=== PATIENT | male | born 1975 | race Caucasian/White ===

== ENCOUNTER 2024-11-17 13:20 | Outpatient (OUT) | payer OTHER, SELFPAY ==
--- OUTSIDE RECORDS SUMMARY | 2016-05-27 20:00 | XMS_ITS | Continuity of Care Document ---
Author Organization [facility] rtment Address [address] [place] [address] Phone Care Team Providers Care Automotive Sales Associate Name Role Phone Sinan Robin DO Unavailable Unavailable Procedures Procedure Date RPR RPR-External RPR RPR-External HAV OFFICE/OUTPATIENT VISIT EST QFT Negative TB TEST, CELL IMMUN MEASURE ROUTINE VENIPUNCTURE Advance Directives Directive Yes / No Effective Date File Name No Information Encounters Encounter Description Practice Location Reason(s) For Visit Diagnoses Date Provider Providers Copied on Encounter [facility], [address], [place], [id number] , tel:[phone] [facility] Lab - [facility] Encounter for screening for infections with a predominantly sexual mode of transmission Sharda Gil. [address] [place], [address]. tel:[phone] [facility], [address], [place], [id number] , tel:[phone] [facility] Lab - [facility] Screening exam for sexually transmitted disease 5 Sharda Gil. [address] [place], [address]. tel:[phone] OFFICE/OUTPA TIENT VISIT EST [facility], [address], [place], [id number] , tel:[phone] [facility] Immunization Need for hepatitis A immunization 4 Ji Maier. [address] [place], [id number], [place]. tel:[phone] [facility], [address] [place], [id number] , tel: [phone] [facility] TB negative tb screening (chief complaint) QFT (chief complaint) No Information 2200 9 No Information [facility], [address] [place], [id number] , tel: [phone] [facility] TB QFT (chief complaint) SCREENING-PULM ONARY TBSCREENING-PU LMONARY TB 9 No Information Family History Family Member Type Diagnosis Age At Onset No Information Immunizations Vaccine Date Status Comments Hep A (adult) administered Source: New Im munization Record Payers Payer name Insurance type Covered constitution party ID Maicol crawley(s) [facility] Social History Type Description Quantity Date Captured Comments Sex Male Smoking Status No Information Chief Complaint And Reason For Visit No Information Reason For Referral Reason For Referral No Information Plan Of Treatment Date Type Action Status Future Order: Lab Order RPR W/re flex FTA (RPRREFLEX), Appointment on: Ordered Future Order: Lab Order RPR W/re flex FTA (RPRREFLEX), Appointment on: Ordered History Of Present Illness Encounter Date Complaint History Of Prese nt Illness No Information Functional Status Date Functional Assessmen t No Information Instructions Date Instruction Additional Infor mation No Information Assessments Type Assessment Date assessment Encounter for screen ing for infections with a predominantly sexual mode of transmission Patient Care Teams Name Effective Dates (start - stop) Status Members No Information
--- OUTSIDE RECORDS SUMMARY | 2024-11-17 13:28 | XMS_ITS | Encounter Summary ---
Author Organization [facility] Address [address] [place] [address] Care Team Providers Care Plant Utility Person Name Role Phone Robert Santana MD Primary Care Provider [phone] Encounter Details Date Type Department Care Team (Latest Contact Info) Description 11/08/2024 Travel Social History Tobacco Use Types Packs/Day Years Used Date Smoking Tobacco: Some Days Cigars Smokeless Tobacco: Never Alcohol Use Standard Drinks/Week Comments Yes 0 (1 standard drink = 0.6 oz pur e alcohol) B1300 Health Literacy Answer Date Recor ded How often do you need to hav e someone help you when you read instructions, pamphlets, or other written material from your doctor or pharmacy? Never 05/10/2024 Social Connection and Isolation Panel [NHANES] A nswer Date Recorded In a typical week, how many times do you talk on the phone with family, friends, or neighbors? Once a week 05/10/19 How often do you get togethe r with friends or relatives? Once a week 05/10/2024 How often do you attend chur or restorationist services? Never 05/10/2024 Do you belong to any clubs o r organizations such as samaritan groups, unions, fraternal or athletic groups, or school groups? No 05/10/2024 How often do you attend meet ings of the clubs or organizations you belong to? Never 05/10/2024 Are you , , di vorced, , never , or living with a partner? Living with partner 05/10/2024 AUDIT-C Answer Date Recorded Q1: How often do you have a drink containing alc ohol? 2-3 times a week 05/10/2024 Q2: How many drinks containi ng alcohol do you have on a typical day when you are drinking? 1 or 2 05/10/2024 Q3: How often do you have si x or more drinks on one occasion? Never 05/10/2024 Overall Financial Resource Strain (CARDIA) Answe r Date Recorded How hard is it for you to pa y for the very basics like food, housing, medical care, and heating? Not hard at all 05/10/2024 PHQ-2 Answer Date Recorded Patient Health Questionnaire-2 Score 0 11/08/2024 [facility] of Occupat ional [facility] - Occupational Stress Questionnaire Answer Date Recorded Do you feel stress - tense, restless, nervous, or anxious, or unable to sleep at night because your mind is troubled all the time - these days? To some extent 05/10/2024 Exercise Vital Sign Answer Date Recorde d On average, how many days pe r week do you engage in moderate to strenuous exercise (like a brisk walk)? 1 day 05/10/2024 On average, how many minutes do you engage in exercise at this level? 30 min 05/10/2024 Hunger Vital Sign Answer Date Recorded Within the past 12 months, y ou worried that your food would run out before you got the money to buy more. Never true 05/10/19 25 Within the past 12 months, t he food you bought just didn't last and you didn't have money to get more. Never true 05/10/2024 PRAPARE - Transportation Answer Date Re corded In the past 12 months, has l ack of transportation kept you from medical appointments or from getting medications? No 04/27 In the past 12 months, has l ack of transportation kept you from meetings, work, or from getting things needed for daily living? No 05/10/2024 Housing Stability Vital Sign Answer Geoff e Recorded In the last 12 months, was t here a time when you were not able to pay the mortgage or rent on time? No 05/10/2024 In the past 12 months, how m any times have you moved where you were living? 0 05/10/2024 At any time in the past 12 m [facility], were you homeless or living in a [place] facility (including now)? No 05/10/2024 Sex and Gender Information Value Date Recorded Sex Assigned at Not on file Legal Sex Male 8:12 PM EDT Gender Identity Not on file Sexual Orientation Not on file documented as of this encounter Functional Status * Over the past 2 weeks, how often have you been bothered by any of the following problems? Question Answer Date of Assessment Author Little interest or pleasure in doing things Not at all 11/08/2024 9:50 AM EDT VIVEK GRIJALVA Feeling down, depressed, or hopeless Not at all 10/25 9:50 AM EDT VIVEK GRIJALVA Patient Health Questionnaire-2 Score 0 10/25 9:50 AM EDT VIVEK GRIJALVA documented as of this encounter Plan of Treatment Upcoming Encounters Date Type Department Care Team (Late st Contact Info) Description 11/22/2024 10:00 AM EDT Office Visit [facility] [address] [place] [address] Cassia Asher MD [address] [place] [address] 12/07/2024 11:00 AM EDT Office Visit [facility] [address] [place] [address] Robert Santana MD [address] [place] [address] documented as of this encounter Visit Diagnoses Not on filedocumented in this encounter Care Teams Plant Utility Person Relationship Specialty Start Date End Date Robert Santaan MD [address] [place] [address] PCP - General Internal Medicine 04/23/23 documented as of this encounter
--- OUTSIDE RECORDS SUMMARY | 2024-11-17 13:28 | XMS_ITS | Clinical Summary ---
Author Organization [facility] Healthcare Address [address] [place] [address] Care Team Providers Care Dialysis Biomed Technician Name Role Phone Robert Santana MD Primary Care Provider [phone] Allergies No known active allergies Medications empagliflozin (Jardiance) 10 MGIndications:T ype 2 diabetes mellitus without complication, without long-term current use of insulin ([facility]) Take 1 tablet (10 mg) by mouth Daily 90 tablet 3 5 05/11/19 26 Active neomycin-polymy samantha-hydrocortis one (Cortisporin) otic solutionIndicat ions:Cellulitis of toe, right,Ingrown toenail 2-3 drops in each nail bed following nail removal procedure daily with dressing changes. 10 mL 2 5 Active Lancets (OneTouch Delica Plus [id number]) miscIndications :Type 2 diabetes mellitus without complication, without long-term current use of insulin ([facility]) 1 each by Other route Daily 100 each 3 5 11/09/19 26 Active glucose blood (OneTouch Ultra Test) test stripIndication s:Type 2 diabetes mellitus without complication, without long-term current use of insulin ([facility]) 1 each by Other route Daily 100 each 3 5 Active amoxicillin-cla vulanate (Augmentin) 875-125 MG tabletIndicatio ns:Acute recurrent sinusitis, unspecified location Take 1 tablet (875 mg) by mouth in the morning and 1 tablet (875 mg) before bedtime. Do all this for 14 days. 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 04/13/2023 Type 2 diabetes mellitus, wi thout long-term current use of insulin 04/13/2023 Herniation of cervical inter vertebral disc with radiculopathy 11/28/2014 Pure hypertriglyceridemia 07/03/2011 Encounters Date Type Department Care Team Description 11/08/2024 10:00 AM EDT Office Visit [facility] [address] [facility] [address] [place] [address] [place] Carrington, AISSATOU Chronic sinusitis, unspecified location (Primary Dx); Epistaxis; Acute intractable headache, unspecified headache type; Type 2 diabetes mellitus without complication, without long-term current use of insulin (HCC); Acute recurrent sinusitis, unspecified location 11/08/2024 Bamboo flowsheet [facility] [address] [facility] [address] [place] [address] [place] Carrington NP 11/08/2024 Travel 09/28/2024 3:00 PM EDT Office Visit [facility] [address] [place] [address] Giovana Pacheco DPM Ingrown toenail (Primary Dx); Pain of toe of left foot; Pain of toe of right foot 09/28/2024 Bamboo flowsheet [facility] [address] [place] [address] Giovana Pacheco DPM 09/28/2024 Travel 09/05/2024 4:15 PM EDT Office Visit [facility] [address] [place] [address] Pacheco, Giovana H, DPM Ingrown toenail (Primary Dx); Cellulitis of toe, right; Paronychia of toenail of right foot 09/05/2024 Bamboo flowsheet [facility] [address] [place] [address] Giovana Pacheco DPM 09/05/2024 Travel 08/18/2024 2:45 PM EDT Office Visit [facility] [address] [place] [address] Giovana Pacheco, NORMA Cellulitis of toe, right (Primary Dx); Ingrown toenail; Paronychia of toenail of right foot 08/18/2024 Bamboo flowsheet [facility] [address] [place] [address] Giovana Pacheco DPM 08/18/2024 Travel from Last 3 Months Immunizations Immunization Administration Dates Next Due Influenza, injectable, quadrivalent 01/30/2021 Family History Relation Name Status Comments Father Alive Mother Alive Social History Tobacco Use Types Packs/Day Years Used Date Smoking Tobacco: Some Days Cigars Smokeless Tobacco: Never Tobacco Cessation:Ready to Q uit: Not Asked; Counseling Given: Yes Alcohol Use Standard Drinks/Week Comments Yes 0 [...] 05/10/2024 How often do you attend chur ch or tenriism services? Never 05/10/2024 Do you belong to any clubs o r organizations such as christianity groups, unions, fraternal or athletic groups, or [...] Recorded Patient Health Questionnaire-2 Score 0 11/08/2024 [facility] Occupat ional Health - Occupational Stress Questionnaire Answer Date Recorded [...] any time in the past 12 m [facility], were you homeless or living in a retirement (including now)? No 05/10/2024 Sex and Gender Information Value Date Recorded Sex Assigned at Not on file Legal Sex Male 8:12 PM EDT Gender Identity Not on file Sexual Orientation Not on file Last Filed Vital Signs Vital Sign Reading Time Taken Comments Blood Pressure 124/78 11/08/2024 9:58 AM EDT Pulse 67 11/08/2024 9:58 AM EDT Temperature - - Respiratory Rate 16 11/08/2024 9:58 AM EDT Oxygen Saturation 98% 11/08/2024 9:58 AM EDT Inhaled Oxygen Concentration - - Weight 82.1 kg (181 lb) 11/08/2024 9:58 AM EDT Height 179.7 cm (5' 10.75 ) 11/08/2024 9:58 AM E DT Body Mass Index 25.42 11/08/2024 9:58 AM EDT Plan of Treatment Upcoming Encounters Date Type Department Care Team (Late st Contact Info) Description 11/22/2024 10:00 AM EDT Office Visit [facility] [address] [facility] [address] [place] [address] Cassia Asher MD [address] [facility] [address] [place] [address] 12/07/2024 11:00 AM EDT Office Visit [facility] [address] [facility] [address] [place] [address] Robert Santana MD [address] [address] [place] [address] Health Maintenance Due Date Last Done Comments CT Colonography 1976 Colonoscopy 1976 FIT 1976 FOBT 1976 Sigmoidoscopy 1976 Diabetes: Hemoglobin A1C 09/05/2024 025, 12/07/2023, 06/15/2023, Additional history exists Diabetes: Urine Protein Screening 09/09/2024 024, 01/16/2021 Influenza Vaccine (#1) 2024 01/30/2021 Diabetes: Retinopathy Screening 04/13/2025 Colorectal Cancer Screening 05/11/2026 FIT-DNA 05/11/2026 05/11/2023 Procedures Procedure Name Priority Date/Time Associated Diagnosis Comments POCT GLYCATED HEMOGLOBIN, TOTAL Routine 06/08/2024 11:52 AM EST Type 2 diabetes mellitus with other specified complication, without long-term current use of insulin (HCC) MICROALBUMIN / CREATININE URINE RATIO Routine 09/10/2023 2:34 PM EDT Type 2 diabetes mellitus without complication, without long-term current use of insulin (HCC) LAB COLOGUARD COLON CANCER SCREEN Routine 05/11/2023 2:30 PM EST Screening for colorectal cancer DIABETIC RETINOPATHY SCREENING - OU - BOTH EYES Routine 04/13/2023 from Last 3 Months or Most Recently Relevant to Health Maintenance Results * POCT Glycated hemoglobin, total (06/08/2024 11:52 AM EST) Hemoglobin A1C 7.3 Blood 06/08/2024 11:5 2 AM EST Robert Santana MD POINT OF CARE TEST ENTER/EDIT ORDERABLES Final Result * Microalbumin / creatinine, urine ratio (09/10/2023 2:34 PM EDT) CREATININE, RANDOM URINE 149 20 - 320 mg/dL [facility] ALBUMIN, URINE 0.2 See Note: mg/dL [facility] Comment: Reference Range: Reference Range Not established ALBUMIN/CREATININE RATIO, RANDOM URINE 1 <30 mg/g creat [facility] Comment: The ADA defines abnormalities in albumin excretion as follows: Albuminuria Category Result (mg/g creatinine) Normal to Mildly increased <30 Moderately increased 30-299 Severely increased > OR = 300 The ADA recommends that at least two of three specimens collected within a 3-6 month period be abnormal before considering a patient to be within a diagnostic category. Urine Urine specimen obtained by clean catch procedure / Unknown 09/10/2023 2:34 PM EDT 09/10/2023 2:34 PM EDT Narrative [facility] - 09/11/2023 12:19 PM EDT FASTING:YES FASTING: YES Resulting Agency Comment Performing Organization Information Site ID: QPT Name: [facility] Address: [address] [place] [address], [address] [place] [id number] Director: Chang Apodaca MD us Robert Santana MD LAB URINE ORDERABLES Final Res ult [facility] * Cologuard?? colon cancer screening (05/11/2023 2:30 PM EST) NONINV COLON CA DNA+OCC BLD SCRN STL-IMP Negative Negative 05/19/2023 8:42 PM EST [employer] (CLIA #:[id number]) Comment: NEGATIVE TEST RESULT. A negative Cologuard result indicates a low likelihood that a colorectal cancer (CRC) or advanced adenoma (adenomatous polyps with more advanced pre-malignant features) is present. The chance that a person with a negative Cologuard test has a colorectal cancer is less than 1 in 1500 (negative predictive value >99.9%) or has an advanced adenoma is less than 5.3% (negative predictive value 94.7%). These data are based on a prospective cross-sectional study of 10,000 individuals at average risk for colorectal cancer who were screened with both Cologuard and colonoscopy. (Monae Chapman al, N Engl J Med 2014;370(14):6320-3631) The normal value (reference range) for this assay is negative. COLOGUARD RE-SCREENING RECOMMENDATION: Periodic colorectal cancer screening is an important part of preventive healthcare for asymptomatic individuals at average risk for colorectal cancer. Following a negative Cologuard result, the [place] [employer] Society and U.S. Multi-Society Task Force screening guidelines recommend a Cologuard re-screening interval of 3 years. References: [place] [employer] Guideline for Colorectal Cancer Screening: https://www.cancer.org/cancer/jorul-ocljyg-tidkvr/sxfxchghi-wwiuovhzs-spofayq/ac s-rec ommendations.html.; Og DK, Damon CR, Minerva CampbellK, Colorectal Cancer Screening: Recommendations for Physicians and Patients from the U.S. Multi-Society Task Force on Colorectal Cancer Screening , Am J Gastroenterology 2017; 112:5479-1031. TEST DESCRIPTION: Composite algorithmic analysis of stool DNA-biomarkers with hemoglobin immunoassay. Quantitative values of individual biomarkers are not reportable and are not associated with individual biomarker result reference ranges. Cologuard is intended for colorectal cancer screening of adults of either sex, 45 years or older, who are at average-risk for colorectal cancer (CRC). Cologuard has been approved for use by the U.S. FDA. The performance of Cologuard was established in a cross sectional study of average-risk adults aged 50-84. Cologuard performance in patients ages 45 to 49 years was estimated by sub-group analysis of near-age groups. Colonoscopies performed for a positive result may find as the most clinically significant lesion: colorectal cancer [4.0%], advanced adenoma (including sessile serrated polyps greater than or equal to 1cm diameter) [20%] or non- advanced adenoma [31%]; or no colorectal neoplasia [45%]. These estimates are derived from a prospective cross-sectional screening study of 10,000 individuals at average risk for colorectal cancer who were screened with both Cologuard and colonoscopy. (Monae Chapman al, N Engl J Med 2014;370(14):7088-2461.) Cologuard may produce a false negative or false positive result (no colorectal cancer or precancerous polyp present at colonoscopy follow up). A negative Cologuard test result does not guarantee the absence of CRC or advanced adenoma (pre-cancer). The current Cologuard screening interval is every 3 years. ([place] [employer] and U.S. Multi-Society Task Force). Cologuard performance data in a 10,000 patient pivotal study using colonoscopy as the reference method can be accessed at the following location: www.Authenticlick.Yoono/results. Additional description of the Cologuard test process, warnings and precautions can be found at www.e-Rewards.com. Stool specimen (specimen) 05/11/2023 2:30 PM EST 05/13/2023 11:08 AM EST Robert Santana MD LAB MOLECULAR DIAGNOSTICS SHARRON GUSMAN Final Result .[facility] (CLIA #:[id number]) [address] [place] [address], [facility] (CLIA #:[id number]) [address] [place] [address] * Diabetic Retinopathy Screening - OU - Both Eyes (04/13/2023) RESULTS ndr Anatomical Region Laterality Modality Head Other 04/13/2023 Robert Santana MD OPHTH PHOTOGRAPHY Final Result from Last 3 Months or Most Recently Relevant to Health Maintenance Insurance [facility] Care Teams Dialysis Biomed Technician Relationship Specialty Start Date End Date Robert Santana MD [address] [facility] [address] [place] [address] PCP - General Internal Medicine 04/23/23
--- OUTSIDE RECORDS SUMMARY | 2024-11-17 13:28 | XMS_ITS | Encounter Summary ---
Author Organization [facility] Address [address] [place] [address] Care Team Providers Care Maintenance Mechanic Telephone Name Role Phone Robert Santana MD Primary Care Provider [phone] Encounter Details Date Type Department Care Team (Late st Contact Info) Description 11/08/2024 Bamboo flowsheet [facility] [address] [facility] [address] [place] [address] [place] Carrington, RUBBER OFF [address] [facility] [address] [place] [address] Social History Tobacco Use Types Packs/Day Years [...] often do you attend chur ch or latter day services? Never 05/10/2024 Do you belong to any clubs o r organizations such as pentecostalism groups, unions, fraternal or athletic groups, or [...] Recorded Patient Health Questionnaire-2 Score 0 11/08/2024 [facility] of Occupat ional [facility] - Occupational Stress Questionnaire Answer Date Recorded [...] time in the past 12 m [facility], were you homeless or living in a snf (including now)? No 05/10/2024 Sex and Gender Information Value Date Recorded Sex Assigned at Not on file Legal Sex Male 8:12 PM EDT Gender Identity Not on file Sexual Orientation Not on file documented as of this encounter Plan of Treatment Upcoming Encounters Date Type Department Care Team (Late st Contact Info) Description 11/22/2024 10:00 AM EDT Office Visit [facility] [address] [place] [address] Cassia Asher MD [address] [place] [address] 12/07/2024 11:00 AM EDT Office Visit [facility] [address] [place] [address] Robert Santana MD [address] [place] [address] documented as of this encounter Visit Diagnoses Not on filedocumented in this encounter Care Teams Maintenance Mechanic Telephone Relationship Specialty Start Date End Date Robert Santana MD [address] [place] [address] PCP - General Internal Medicine 04/23/23 documented as of this encounter
--- OUTSIDE RECORDS SUMMARY | 2024-11-17 13:28 | XMS_ITS | Encounter Summary ---
Author Organization [facility] Address [address] [place] [address] Care Team Providers Care Nail Welter Name Role Phone Robert Santana MD Primary Care Provider [phone] Encounter Details Date Type Department Care Team (Late st Contact Info) Description 04/13/2023 Abstract [facility] [address] [facility] [address] [place] [id number] A, Unknown Practice [address] [place], [place] [id number] Social History Tobacco Use Types Packs/Day Years Used Date Smoking Tobacco: Never Assessed Sex and Gender Information Value Date Recorded Sex Assigned at Not on file Legal Sex Male 8:12 PM EDT Gender Identity Not on file Sexual Orientation Not on file documented as of this encounter Plan of Treatment Upcoming Encounters Date Type Department Care Team (Late st Contact Info) Description 11/22/2024 10:00 AM EDT Office Visit [facility] [address] [facility] [address] [place] [phone] Cassia Asher MD [address] [place] [address] 12/07/2024 11:00 AM EDT Office Visit [facility] [address] [facility] [address] [place] [phone] Robert Santana MD [address] [facility] [address] [place] [address] documented as of this encounter Visit Diagnoses Not on filedocumented in this encounter Care Teams Nail Welter Relationship Specialty Start Date End Date Robert Santana MD [address] [facility] [address] [place] [address] PCP - General Internal Medicine 04/23/23 documented as of this encounter
--- NOTE | 2024-11-17 13:55 | CT_ITS ---
The [address] [address] Patient Name: ALPESH COPPOLA MRN: [id number] date: 1975 Sex: M Assigned Patient Location: CT Current Patient Location: CT Accession/Order Number: [id number] Exam Date: 11/17/2024 14:13 Report Date: 11/17/2024 14:15 At the request of: JEANNINE PADLILA Procedure: CT head/brain wo con CT BRAIN WITHOUT CONTRAST: CLINICAL HISTORY: Chronic Sinusitis, Epistaxis, Acute Intractable Headache COMPARISON: None TECHNIQUE: Contiguous axial unenhanced images were obtained through the brain. This CT exam was performed using one or more following dose reduction techniques: Automated exposure control, adjustment of the mA and/or kV according to patient size, or use of iterative reconstruction technique. FINDINGS: There is no evidence of midline shift, intra or extra-axial fluid collection, hemorrhage or CT evidence of stroke. Posterior fossa appears unremarkable. Visualized intraorbital contents demonstrate no acute findings. Visualized paranasal sinuses are clear. The surrounding soft tissues are normal. CT/CT head/brain wo con IMPRESSION: NO ACUTE INTRACRANIAL ABNORMALITY. Impression dictated by: Jared Izquierdo Jr., D.O. 11/17/2024 2:15 PM Dictation Location: [place] [address] Electronically authenticated by: [id number] Y Date: 11/17/2024 14:15
== END 2024-11-17 13:21 | disposition home or self-care (01) ==
LOC: CT 13:26
PROVIDERS: PCP Internal Medicine; Visit Provider Nurse Practitioner Family
DX: J32.9 Chronic sinusitis, unspecified (principal); R04.0 Epistaxis; R51.9 Headache, unspecified
CPT/HCPCS: 70450